=== PATIENT | female | born 1960 | race Caucasian/White ===

== ENCOUNTER 2019-01-01 10:58 | Emergency (ER) | payer SELFPAY ==
[2019-01-01 11:31] VITALS: BP 112/77
--- NOTE | 2019-01-01 11:34 | UC ---
General HPI - HPI Summary HPI Summary: 58 yo female presents accompanied by her sister with complaints of fatigue and sinus pain/pressure/congestion. She tells me that about 2 weeks ago she developed sinus pain/pressure/congestion, body aches, fever, and joint pain. She went to a local urgent care and was dx'd with a sinus infection and prescribed augmentin for 7 days. She completed this on 12/27 and felt better for 2 days, but she began to have sinus pain/pressure/congestion and a low grade fever again with fatigue. She is concerned for continued sinus infection or lyme disease. She does not recall a specific tick bite or seeing a rash. Has not had a fever in 48 hours. Has not been taking anything OTC for her symptoms. Denies sore throat, cough, SOB, chest pain, abdominal pain, n/v, dysuria. - History of Current Complaint Chief Complaint: UCGeneralIllness Stated Complaint: GENERAL ILLNESS Time Seen by Provider: 01/01/19 11:34 Hx Obtained From: Patient Onset/Duration: Gradual Onset Onset Severity: Moderate Current Severity: Moderate Pain Intensity: 5 - Allergy/Home Medications Allergies/Adverse Reactions: Allergies Allergy/AdvReac Type Severity Reaction Status Date / Time anastrozole [From Arimidex] Allergy Intermediate Joint Pain Verified 01/01/19 11 :33 latex Allergy Rash Verified 01/01/19 11:33 Sulfa (Sulfonamide Allergy Rash Verified 01/01/19 11:33 Antibiotics) Home Medications: Home Medications Aspirin 1 tab PO QPM 01/01/19 [History Confirmed 01/01/19] Exemestane 1 tab PO QPM 01/01/19 [History Confirmed 01/01/19] FLUoxetine CAP* [Prozac CAP*] 1 tab PO DAILY 01/01/19 [History Confirmed ] Ibuprofen 600 mg PO ONCE PRN 01/01/19 [History Confirmed 01/01/19] L.acidoph,Paracasei, B.lactis [Probiotic] 1 tab PO BID 01/01/19 [History Confirmed 01/01/19] cloNIDine HCl [Catapres 0.2 MG TAB] 0.2 mg PO QAM 01/01/19 [History Confirmed ] cloNIDine HCl [Catapres 0.3 MG TAB] 1 tab PO QPM 01/01/19 [History Confirmed ] hydroCHLOROthiazide [Hydrochlorothiazide] 25 mg PO QAM 01/01/19 [History Confirmed 01/01/19] PMH/Surg Hx/FS Hx/Imm Hx Cardiovascular History: Hypertension Psychological History: Anxiety - Surgical History Surgical History: Yes Surgery Procedure, Year, and Place: vein removal surgery in left leg. rotator cuff surgery left shoulder 2010 - Family History Known Family History: Positive: Hypertension - Social History Lives: With Family Alcohol Use: Occasionally Substance Use Type: Marijuana Smoking Status (MU): Never Smoked Tobacco Review of Systems All Other Systems Reviewed And Are Negative: Yes Constitutional: Positive: Fever, Fatigue Skin: Positive: Negative Eyes: Positive: Negative ENT: Positive: Sinus Congestion, Sinus Pain/Tenderness Respiratory: Positive: Negative Cardiovascular: Positive: Negative Gastrointestinal: Positive: Negative Neurovascular: Positive: Negative Neurological: Positive: Negative Psychological: Positive: Negative Physical Exam - Summary Physical Exam Summary: GENERAL: NAD. WDWN. No pain distress. SKIN: No rashes, sores, lesions, or open wounds. HEENT: Head: AT/NC Eyes: EOM intact. Conjunctiva clear without inflammation or discharge. Ears: Hearing grossly normal. TMs intact, no bulging, erythema, or edema. Nose: Nasal mucosa mildly swollen and erythematous with yellow/ clear discharge. TTP maxillary and frontal sinus. Positive post nasal drip Throat: Posterior oropharynx without exudates, erythema, or tonsillar enlargement. Uvula midline. NECK: Supple. Nontender. No lymphadenopathy. CHEST: CTAB. No r/r/w. No accessory muscle use. Breathing comfortably and in no distress. CV: RRR. Without m/r/g. Pulses intact. NEURO: Alert. PSYCH: Age appropriate behavior. Triage Information Reviewed: Yes Vital Signs: Initial Vital Signs Temp 98.3 F 01/01/19 11:20 Pulse 85 01/01/19 11:20 Resp 18 01/01/19 11:20 BP 112/77 01/01/19 11:20 Pulse Ox 98 01/01/19 11:20 Vital Signs Reviewed: Yes Course/Dx - Course Course Of Treatment: Will draw for lyme disease lab today. Her symptoms could be consistent with lyme, therefore will start her on doxycycline for 1 week to treat a continued sinusitis and if the lyme returns positive will extend her course of anbx. Encouraged to schedule an appt with a PCP for recheck within 1 week - Diagnoses Provider Diagnosis: Sinusitis, Fatigue Discharge - Sign-Out/Discharge Documenting (check all that apply): Patient Departure All imaging exams completed and their final reports reviewed: No Studies - Discharge Plan Condition: Stable Disposition: HOME Prescriptions: DOXYcycline CAP(*) [DOXYcycline 100MG CAP(*)] 100 mg PO BID #14 cap Patient Education Materials: Lyme Disease (ED), Sinusitis (ED) Referrals: No Primary Care Phys,NOPCP [Primary Care Provider] - [facility] [place]] - 1 Week Additional Instructions: If you develop a fever, shortness of breath, chest pain, new or worsening symptoms - please call your PCP or go to the ED immediately. You have been tested for lyme disease today, if this result is positive we will prescribe an additional week of doxycycline (antibiotic) for you to take to treat the lyme disease. - Billing Disposition and Condition Condition: STABLE Disposition: Home - Attestation Statements Provider Attestation: I was available for consult. This patient was seen by the MARCELO. The patient was not presented to, seen by, or examined by me. -Silverio
--- NOTE | 2019-01-02 15:33 | UC ---
- Progress Note Progress Note: Lyme test was positive. Patient was prescribed doxycycline 100 mg BID x 1 week at time of visit. Will need to complete an additional 1 week course of doxycycline 100 mg BID for full treatment of Lyme disease. Prescription was sent to her preferred pharmacy. Nursing to contact the patient with the results and instructions. Course/Dx - Diagnoses Provider Diagnoses: Sinusitis, Fatigue Discharge - Sign-Out/Discharge Documenting (check all that apply): Post-Discharge Follow Up All imaging exams completed and their final reports reviewed: No Studies - Discharge Plan Condition: Stable Disposition: HOME Prescriptions: DOXYcycline CAP(*) [DOXYcycline 100MG CAP(*)] 100 mg PO BID #14 cap Doxycycline Hyclate 100 mg PO BID #14 tablet Patient Education Materials: Lyme Disease (ED), Sinusitis (ED) Referrals: [facility] [place] [facility] [Outside] - 1 Week No Primary Care Phys,NOPCP [Primary Care Provider] - Additional Instructions: If you develop a fever, shortness of breath, chest pain, new or worsening symptoms - please call your PCP or go to the ED immediately. You have been tested for lyme disease today, if this result is positive we will prescribe an additional week of doxycycline (antibiotic) for you to take to treat the lyme disease. - Billing Disposition and Condition Condition: STABLE Disposition: Home
== END 2019-01-01 12:15 | disposition home or self-care (01) ==
LOC: UCEAST 10:58
DX: A69.20 Lyme disease, unspecified (principal); J32.9 Chronic sinusitis, unspecified; I10 Essential (primary) hypertension; F41.9 Anxiety disorder, unspecified; Z88.2 Allergy status to sulfonamides; Z91.040 Latex allergy status; Z79.82 Long term (current) use of aspirin
CPT/HCPCS: 36415; 86617; 86618; 99202; G0463

== ENCOUNTER → 2019-01-03 09:19 | Emergency (ER) | payer OTHER ==
[~2019-01-03 09:19] MED LIST: Apixaban* 5 MG TAB PO SCH; Iohexol 350* (CONTRAST) 500 ML MDV IV ONE; NS 0.9% 500 ML* 500 ML IV SCH
[2019-01-03 09:58] LABS: ABS Basophils 0.1 10^3/ul (0-0.2); ABS Lymphocytes 2.4 10^3/ul (1.0-4.8); ABS Monocytes 0.6 10^3/ul (0-0.8); ABS Neutrophils 2.6 10^3/ul (1.5-7.7); Eosinophil % 0.5 %; Hematocrit 43 % (35-47); Hemoglobin 15.1 g/dL (12.0-16.0); Lymphocyte % 41.8 %; Mean Corpuscular HGB Conc 35 g/dL (31-36); Mean Corpuscular Hemoglobin 33 pg (27-31); Mean Corpuscular Volume 95 fL (80-97); Mean Platelet Volume 6.7 fL (7.4-10.4); Nucleated Red Blood Cells % 0.1; Platelet Count 511 10^3/uL (150-450); Red Blood Count 4.54 10^6 /uL (3.70-4.87); Red Cell Distribution Width 13 % (10-15); White Blood Count 5.7 10^3/uL (3.5-10.8)
[2019-01-03 10:11] LABS: Activated Partial Thrombo Time 31.7 seconds (26.0-38.0)
[2019-01-03 10:18] LABS: Albumin 4.2 g/dL (3.2-5.2); BUN/Creatinine Ratio 24.4 (8-20); Calcium 10.5 mg/dL (8.6-10.3); EGFR African American 81.7 (>60); EGFR Non-African American 67.5 (>60); Globulin 4.1 g/dL (2-4); Magnesium 2.2 mg/dL (1.9-2.7); Potassium 3.8 mmol/L (3.5-5.0); Total Bilirubin 0.7 mg/dL (0.2-1.0); Total Protein 8.3 g/dL (6.4-8.9)
[2019-01-03 10:19] LABS: Troponin I 0.01 ng/mL (<0.04)
[2019-01-03] MEDS: NS 0.9% 1000 ML** 1,000 ML IV.FLUID IV ONE ×2 (10:38→13:15)
--- NOTE | 2019-01-03 10:39 | ED ---
Palpitations / Dysrhythmia - HPI Summary HPI Summary: The patient is a 58 y/o F presenting to [facility] [place] accompanied by friend with a chief complaint of sudden onset palpitations occurring last night and persisting into this morning. She had been working in her friend's garden about 8 weeks ago and had noticed a tick on her, and the following day she noticed another tick. After being bitten by the ticks, her symptoms began. She reports SOB, COUGHLIN, joint pain in the ankles and knees, and lightheadedness. She had then found out that her friend who owned the garden had been diagnosed with Lyme disease after being bitten. She had gone to [facility] to rule out Lyme disease, and she just found out that she tested positive for the preliminary Lyme test. Last night, her BP was elevated despite control of HTN, and she began to have palpitations that lasted into today, causing her to come to the ED today. She has never had palpitations prior to the tick bites, but she has had intermittent episodes since being bitten. She denies presence of bull's eye rash, stiffness of neck, fever, chills, erythema of eyes, sore throat, CP, cough , abdominal pain, N/V, dysuria, hematuria, edema, or dizziness. Hx of HTN. FHx of HTN. Former smoker, rare EtOH, marijuana use. - History of Current Complaint Chief Complaint: EDDysrhythmPalp Time Seen by Provider: 01/03/19 09:32 Hx Obtained From: Patient Onset/Duration: Lasting Hours - starting last night, Still Present Severity Initially: Mild Severity Currently: Moderate Character: Fast Aggravating: Nothing Alleviating: Nothing Associated Signs & Symptoms: Lightheadedness, Shortness of Breath - Allergy/Home Medications Allergies/Adverse Reactions: Allergies Allergy/AdvReac Type Severity Reaction Status Date / Time anastrozole [From Arimidex] Allergy Intermediate Joint Pain Verified 01/03/19 09 :33 latex Allergy Rash Verified 01/03/19 09:33 Sulfa (Sulfonamide Allergy Rash Verified 01/03/19 09:33 Antibiotics) PMH/Surg Hx/FS Hx/Imm Hx Endocrine/Hematology History: Denies: Hx Diabetes Cardiovascular History: Reports: Hx Hypertension Sensory History: Reports: Hx Contacts or Glasses Opthamlomology History: Reports: Hx Contacts or Glasses - Cancer History Cancer Type, Location and Year: breast ca 2016 - Surgical History Surgical History: Yes Surgery Procedure, Year, and Place: vein removal surgery in left leg. rotator cuff surgery left shoulder 2011 Infectious Disease History: No Infectious Disease History: Denies: Traveled Outside the [place] in Last 30 Days - Family History Known Family History: Positive: Hypertension - Social History Alcohol Use: Rare Hx Substance Use: Yes Substance Use Type: Reports: Marijuana Substance Use Comment - Amount & Last Used: rare Hx Tobacco Use: Yes Smoking Status (MU): Former Smoker Review of Systems Negative: Fever, Chills Negative: Erythema Negative: Sore Throat Positive: Palpitations. Negative: Chest Pain Positive: Shortness Of Breath. Negative: Cough Negative: Abdominal Pain, Vomiting, Nausea Negative: dysuria, hematuria Positive: Myalgia - joint pain in ankles and knees, Other - NEGATIVE: neck stiffness. Negative: Edema Negative: Rash Neurological: Other - POSITIVE: lightheadedness; NEGATIVE: dizziness Positive: Headache All Other Systems Reviewed And Are Negative: Yes Physical Exam - Summary Physical Exam Summary: Constitutional: Well-developed, Well-nourished, Alert. (-) Distressed Skin: Warm, Dry HENT: Normocephalic; Atraumatic Eyes: Conjunctiva normal Neck: Musculoskeletal ROM normal neck. (-) JVD, (-) Stridor, (-) Tracheal deviation Cardio: Irregular pulse between 100-120 bpm, Heart sounds normal; Intact distal pulses; The pedal pulses are 2+ and symmetric. Radial pulses are 2+ and symmetric. (-) Murmur Pulmonary/Chest wall: Effort normal. (-) Respiratory distress, (-) Wheezes, (-) Rales Abd: Soft, (-) tenderness, (-) Distension, (-) Guarding, (-) Rebound Musculoskeletal: (-) Edema Lymph: (-) Cervical adenopathy Neuro: Alert, Oriented x3 Psych: Mood and affect Normal Triage Information Reviewed: Yes Vital Signs On Initial Exam: Initial Vitals Temp Pulse Resp BP Pulse Ox 98.1 F 113 20 140/75 100 01/03/19 09:24 01/03/19 09:24 01/03/19 09:24 01/03/19 09:24 01/03/19 09:24 Vital Signs Reviewed: Yes Diagnostics - Vital Signs Vital Signs Temp Pulse Resp BP Pulse Ox 01/03/19 09:24 98.1 F 113 20 140/75 100 - Laboratory Lab Results: Lab Results 01/03/19 01/03/19 01/03/19 Range/Units 09:49 09:49 09:49 WBC 5.7 (3.5-10.8) 10^3/uL RBC 4.54 (3.70-4.87) 10^6 /uL Hgb 15.1 (12.0-16.0) g/dL Hct 43 (35-47) % MCV 95 (80-97) fL MCH 33 H (27-31) pg MCHC 35 (31-36) g/dL RDW 13 (10-15) % Plt Count 511 H (150-450) 10^3/uL MPV 6.7 L (7.4-10.4) fL Neut % (Auto) 46.0 % Lymph % (Auto) 41.8 % [place] % (Auto) 10.6 % Eos % (Auto) 0.5 % Baso % (Auto) 1.1 % Absolute Neuts (auto) 2.6 (1.5-7.7) 10^3/ul Absolute Lymphs (auto) 2.4 (1.0-4.8) 10^3/ul Absolute Monos (auto) 0.6 (0-0.8) 10^3/ul Absolute Eos (auto) 0.0 (0-0.6) 10^3/ul Absolute Basos (auto) 0.1 (0-0.2) 10^3/ul Absolute Nucleated RBC 0.0 10^3/ul Nucleated RBC % 0.1 APTT (26.0-38.0) seconds Sodium 133 L (135-145) mmol/L Potassium 3.8 (3.5-5.0) mmol/L Chloride 102 (101-111) mmol/L Carbon Dioxide 23 (22-32) mmol/L Anion Gap 8 (2-11) mmol/L BUN 21 (6-24) mg/dL Creatinine 0.86 (0.51-0.95) mg/dL Est GFR ( Amer) 81.7 (>60) Est GFR (Non-Af Amer) 67.5 (>60) BUN/Creatinine Ratio 24.4 H (8-20) Glucose 101 H (70-100) mg/dL Lactic Acid 1.7 (0.5-2.0) mmol/L Calcium 10.5 H (8.6-10.3) mg/dL Magnesium 2.2 (1.9-2.7) mg/dL Total Bilirubin 0.70 (0.2-1.0) mg/dL AST 39 (13-39) U/L ALT 65 H (7-52) U/L Alkaline Phosphatase 49 (34-104) U/L Troponin I 0.01 (<0.04) ng/mL Total Protein 8.3 (6.4-8.9) g/dL Albumin 4.2 (3.2-5.2) g/dL Globulin 4.1 H (2-4) g/dL Albumin/Globulin Ratio 1.0 (1-3) 01/03/19 Range/Units 09:49 WBC (3.5-10.8) 10^3/uL RBC (3.70-4.87) 10^6 /uL Hgb (12.0-16.0) g/dL Hct (35-47) % MCV (80-97) fL MCH (27-31) pg MCHC (31-36) g/dL RDW (10-15) % Plt Count (150-450) 10^3/uL MPV (7.4-10.4) fL Neut % (Auto) % Lymph % (Auto) % [place] % (Auto) % Eos % (Auto) % Baso % (Auto) % Absolute Neuts (auto) (1.5-7.7) 10^3/ul Absolute Lymphs (auto) (1.0-4.8) 10^3/ul Absolute Monos (auto) (0-0.8) 10^3/ul Absolute Eos (auto) (0-0.6) 10^3/ul Absolute Basos (auto) (0-0.2) 10^3/ul Absolute Nucleated RBC 10^3/ul Nucleated RBC % APTT 31.7 (26.0-38.0) seconds Sodium (135-145) mmol/L Potassium (3.5-5.0) mmol/L Chloride (101-111) mmol/L Carbon Dioxide (22-32) mmol/L Anion Gap (2-11) mmol/L BUN (6-24) mg/dL Creatinine (0.51-0.95) mg/dL Est GFR ( Amer) (>60) Est GFR (Non-Af Amer) (>60) BUN/Creatinine Ratio (8-20) Glucose (70-100) mg/dL Lactic Acid (0.5-2.0) mmol/L Calcium (8.6-10.3) mg/dL Magnesium (1.9-2.7) mg/dL Total Bilirubin (0.2-1.0) mg/dL AST (13-39) U/L ALT (7-52) U/L Alkaline Phosphatase (34-104) U/L Troponin I (<0.04) ng/mL Total Protein (6.4-8.9) g/dL Albumin (3.2-5.2) g/dL Globulin (2-4) g/dL Albumin/Globulin Ratio (1-3) Result Diagrams: 01/03/19 09:49 01/03/19 09:49 Lab Statement: Any lab studies that have been ordered have been reviewed, and results considered in the medical decision making process. - Radiology CXR Radiology Interpretation Completed By: Radiologist Summary of Radiographic Findings: Impression: No active cardiopulmonary disease. ED physician has reviewed this report. - CT Chest/Thorax CTA CT Interpretation Completed By: Radiologist Summary of CT Findings: Impression: 1. No pulmonary arterial filling defect to suggest pulmonary embolism. 2. There is a right breast lesion with associated surgical clips. This may be postsurgical in nature, though given the history of breast cancer, recurrent neoplasm is within the differential. Recommend comparison with previous breast imaging. 3. There is trace left pleural effusion. ED physician has reviewed this report. - EKG 0934 Cardiac Rate: Other Rate - 94 bpm EKG Rhythm: Atrial Fibrillation Summary of EKG Findings: Atrial fibrillation. No STEMI. Re-Evaluation - Re-Evaluation First Eval Re-Evaluation Time: 11:26 Comment: I discussed possibility for admission with the patient after consulting with Dr. Ortiz. Second Eval Re-Evaluation Time: 14:05 Change: Improved Comment: I discussed CTA results with patient and discharge. She is feeling better from previous re-eval. Course/Dx - Course Course Of Treatment: Patient is a 58 y/o F with cc of sudden onset palpitations occurring last night and persisting into this morning with intermittent episodes occurring over the last few weeks after being bitten by ticks with recent dx of Lyme disease on preliminary test. Associated symptoms include SOB, COUGHLIN, joint pain in the ankles and knees, and lightheadedness. Denies presence of bull's eye rash, stiffness of neck, fever, and CP. It is noted that the patient is currently in Afib, but she states that she didnt have hx of this until recently. Upon physical exam, the patient exhibits irregular pulse between 100- 120 bpm. In the ED course, the patient was administered fluids. Blood work reveals MCH of 33, plt count of 511, MPV of 6.7, sodium of 133, BUN/Creatinine of 24.4, glucose of 101, calcium of 10.5, ALT of 65, and globulin of 4.1. First and second troponins are 0.00. D-Dimer is >1050. EKG at 0934 reveals afib at 94 bpm. Chest x-ray shows no active cardiopulmonary disease. Dr. Ortiz and I discussed the patient's case, and he endorses admission. I discussed admission with Dr. Gregorio, but when she went in the patient's room for an assessement, the patient had converted back to NSR. Since she has an elevated D-Dimer, we will continue with CTA Chest/Thorax with contrast. Dr. Gregorio also recommends 5mg Eliquis every day. She will be able to follow up with her PCP in [place] for continued use of Eliquis. CTA Chest/Thorax Impression: 1. No pulmonary arterial filling defect to suggest pulmonary embolism. 2. There is a right breast lesion with associated surgical clips. This may be postsurgical in nature , though given the history of breast cancer, recurrent neoplasm is within the differential. Recommend comparison with previous breast imaging. 3. There is trace left pleural effusion. She will be discharged home with rx for Eliquis and follow up with her PCP in [place]. She agrees with discharge plan. She is diagnosed with atrial fibrillation, right breast lesion, and Lyme disease. We discussed all results, and she is given a disc of the CTA. - Diagnoses Provider Diagnoses: Afib, Breast lesion, Lyme disease - Physician Notifications Discussed Care Of Patient With: Myke Ortiz - cardiology Time Discussed With Above Provider: 11:25 Instructed by Provider To: Other - Dr. Ortiz and I discussed the patient's case , and he endorses admission. I spoke with Dr. Gregorio at 1215, and she will see the patient in the ED. When she went in the patient's room for an assessement, the patient had converted back to NSR, but she has an elevated D-Dimer. She recommends follow up with CTA Chest/Thorax and 5mg Eliquis every day. She is able to follow up with her PCP in [place]. Discharge - Sign-Out/Discharge Documenting (check all that apply): Patient Departure - Patient will be discharged home. Patient Received Moderate/Deep Sedation with Procedure: No - Discharge Plan Condition: Stable Disposition: HOME Prescriptions: Apixaban* [Eliquis*] 5 mg PO BID #14 tab Patient Education Materials: A-fib (Atrial Fibrillation) (DC), Lyme Disease (ED ), Safe Use of Anticoagulants (ED) Referrals: [facility] [place] [facility] [Outside] - 3 Days Additional Instructions: Follow up with your primary care physician in [place] in the next 2-3 days for continued blood thinner use. While on blood thinners, DO NOT take any NSAIDs, including Ibuprofen or Aspirin. RETURN TO THE EMERGENCY DEPARTMENT FOR ANY NEW OR WORSENING SYMPTOMS. - Billing Disposition and Condition Condition: STABLE Disposition: Home - Attestation Statements Document Initiated by Issaibe: Yes Documenting Scribe: Sandra Michelle Provider For Whom Jessica is Documenting (Include Credential): Dr. Levi Alvares MD Scribe Attestation: Sandra Whitt scribed for Dr. Levi Alvares MD on 01/03/19 at 2027. Status of Scribe Document: Ready
[2019-01-03 13:07] LABS: TSH (Thyroid Stimulating Horm) 1.72 mcIU/mL (0.34-5.60)
[2019-01-03 14:33] VITALS: BP 115/80
--- NOTE | 2019-01-03 14:55 | CONS ---
CC: Dr. Alvares * CONSULTATION REPORT: DATE OF CONSULT: 01/03/19 - EMERGENCY DEPT. PRIMARY CARE PROVIDER: None locally. PROVIDER REQUESTING THE CONSULTATION: Dr. Alvares from the emergency department. REASON FOR CONSULT: In regards to atrial fibrillation and possibility of admission. HISTORY OF PRESENT ILLNESS: Brigitte Almaraz is a 58-year-old female with a history of breast cancer, status post lumpectomy in 2016, as well as hypertension, who presented to the hospital with the chief complaint of feeling occasional palpitations, shortness of breath, and dizziness. The patient stated that those symptoms have been ongoing for approximately 4 weeks. Approximately 2 weeks ago, she had episodes of chills and fevers and was diagnosed with sinusitis and treated with amoxicillin prescribed at [facility]. At that point, she also had Lyme titer obtained that apparently resulted just a couple of days ago to be positive. At that point, she was started on doxycycline. After doxycycline, she had occasional nausea and frequent bowel movements and she felt overall "lousy." She came into the hospital because she was again experienced palpitations and dizziness, and she was noted to be in atrial fibrillation with heart rate in between [address] Alvares asked the medicine service to evaluate the patient for possibility of admission. The patient herself stated that unfortunately she has insurance that is only valid in [place] and she is very concerned about any cost that may not be covered during the management of her problems in [facility]. The patient has had no chest pain throughout the period of her symptoms in the past 1 month. PAST MEDICAL HISTORY: 1. History of hypertension. 2. History of vein surgery in her leg. 3. History of rotator cuff surgery in 2010. 4. History of breast cancer in 2016, status post lumpectomy and radiation. MEDICATIONS: Current medications at home include: 1. Clonidine 0.2 mg in the morning, 0.3 mg in p.m. 2. Fluoxetine 10 mg daily. 3. Exemestane 25 mg q.p.m. 4. Aspirin 81 mg daily. 5. Hydrochlorothiazide 25 mg daily. 6. Probiotic 1 capsule b.i.d. 7. Ibuprofen on a p.r.n. basis. 8. Doxycycline 100 mg b.i.d. ALLERGIES: Include ANASTROZOLE, LATEX, and SULFA. FAMILY HISTORY: Positive for mother with colon cancer at the age of 47. Father with a history of abdominal aortic aneurysm at the age of 48. SOCIAL HISTORY: The patient denies any tobacco or alcohol use. She smokes occasionally marijuana. She is currently retired, used to work as a teacher in driving education. She lives originally in [place], but the past several months, she has been spending with her friend in [place] who is now on hospice. She had been traveling back and forth from [place], last time she drove to [place] was on 12/14/18. REVIEW OF SYSTEMS: Please see history of present illness. All the remaining 12 systems were reviewed with the patient and were otherwise negative. PHYSICAL EXAM: Blood pressure of 140/75, heart rate of 113 and regular, respiratory rate 20, oxygen saturation 100% on room air, temperature 98.1. General: The patient is a very pleasant 58-year-old female who is in no acute distress. Alert, awake, and oriented x3. HEENT: Head: Atraumatic, normocephalic. Eyes: Pupils are equal and reactive to light and accommodation. Oropharynx is clear. Mucosa moist. Neck: Supple. No JVD. No bruits bilaterally. Cardiovascular: Irregularly irregular rhythm. No murmur. Respiratory: Clear to auscultation bilaterally. Abdomen: Soft, nontender. Bowel sounds are present in all 4 quadrants. Extremities: There is no edema. Pulses are +2 bilaterally. No clubbing or cyanosis. On neuro evaluation, speech clear. Cranial nerves II through XII grossly intact. Motor strength is 5 /5 bilaterally. DIAGNOSTIC STUDIES/LAB DATA: Laboratory data showed a white blood cell of 5.7, hemoglobin 15.1, hematocrit 43, and platelets of 511. D-dimer was above at 1050. Sodium was 133, potassium 3.8, chloride 102, carbon dioxide 23, BUN 21, creatinine 0.86. Liver function tests were unremarkable. Calcium mildly elevated at 10.5. Please also note this patient's ALT was mildly elevated at 65. TSH was 1.7. The patient's troponin was 0.010 three hours later. The patient's EKG showed atrial fibrillation with a heart rate of 94 beats per minute with negative T-wave in III and aVF. The patient's CT angiogram was ordered of the chest to rule out PE and is pending at the time of dictation. ASSESSMENT AND PLAN: In regards to the patient's history of atrial fibrillation , the rate is rather controlled from 80 to 110s a minute. The patient actually after she received a liter of intravenous hydration, went to the bathroom, and after I saw her in the emergency department, she converted to sinus rhythm and she feels much better and stronger now. The case was discussed with both Dr. Alvares and our streetcar dispatcher cogeneration operator. The patient is very concerned about being admitted to the hospital due to her insurance issues that is not local. At this point, her rate is fairly controlled and actually she right now converted to sinus rhythm. She is recommended to be on anticoagulation for at least a month afterwards. She may be able to go home from the emergency department if her CT angiogram is obtained and ruled out for pulmonary embolism. Cardiology department also recommended continuation of the patient's clonidine. I also placed the patient back on intravenous fluids at 500 mL an hour for a total of a liter. It appears to me that the patient's hyponatremia and hypercalcemia are likely due to dehydration due to doxycycline use. She now is somehow adjusted to doxycycline and she is ready to continue it and she is going to be able to take it with food. She was also encouraged to drink plenty of liquids. The patient plans to go to [place] shortly after her discharge from the emergency department today. CT angiogram of the chest is still pending at the time of this dictation and I informed Dr. Alvares about the plan of possibility of discharging the patient from the ED with a new medication, Eliquis 5 mg twice a day for a total of 1 month. The patient is recommended to follow up with her primary care provider in [place] as well as streetcar dispatcher referral. TIME SPENT: Approximately 90 minutes were spent on consultation of this patient in the ED, more than half that time was spent [id number] with the patient during the consultation. [id number]/[facility] #: [id number] [place]
== END | disposition home or self-care (01) ==
LOC: ED 09:19
DX: A69.20 Lyme disease, unspecified (principal); I48.91 Unspecified atrial fibrillation; N64.89 Other specified disorders of breast; I10 Essential (primary) hypertension; Z88.2 Allergy status to sulfonamides; Z88.8 Allergy status to other drugs, medicaments and biological substances; Z91.040 Latex allergy status; Z87.891 Personal history of nicotine dependence; Z79.82 Long term (current) use of aspirin; Z79.899 Other long term (current) drug therapy
CPT/HCPCS: 36415; 71045; 71275; 80053; 83605; 83735; 84443; 84484; 85025; 85379; 85730; 93005; 96360; 96361; 99283; Q9967